=== PATIENT | male | born 1990 | race Caucasian/White ===

== ENCOUNTER → 2017-10-28 19:16 | Emergency (ER) | payer SELFPAY ==
[~2017-10-28] VITALS: Ht 177.8 cm; Wt 78.9 kg
[2017-10-28 19:29] VITALS: BP 132/85
== END | disposition left against medical advice (07) ==
LOC: EME 19:16
DX: R07.9 Chest pain, unspecified (principal); Z53.21 Procedure and treatment not carried out due to patient leaving prior to being seen by health care provider
CPT/HCPCS: 93005